=== PATIENT | male | born 1955 | race Two or more races ===

== ENCOUNTER → 2024-01-31 | Outpatient (CLI) | payer OTHER ==
[2024-01-31 09:40] LABS: Urine Blood 1+ /uL (Negative); Urine Clarity Clear (Clear); Urine Color Yellow (Yellow); Urine Protein, UAD Negative (Negative); Urine Specific Gravity 1.017 (1.001-1.035); Urine Urobilinogen Normal (Negative)
[2024-01-31 09:45] LABS: Basophils # (auto) 0 10 ^3/uL (0-0.2); Eosinophils # (auto) 0.1 10 ^3/uL (0-0.8); Monocytes # (auto) 0.4 10 ^3/uL (0-1.3); Monocytes % (auto) 8.2 % (0.0-12.0)
[2024-01-31 09:48] LABS: Basophils % (auto) 0.1 % (0.0-2.0); Eosinophils % (auto) 2.2 % (0.0-7.0); Hematocrit 38.9 % (41.0-53.0); Lymphocytes % (auto) 18.9 % (10.0-50.0); Mean Corpuscular Hemoglobin 33.6 pg (28.0-32.0); Mean Corpuscular Hgb Conc. 33.4 g/dL (32.0-36.0); Mean Corpuscular Volume 100.5 fL (80.0-100.0); Neutrophils # (auto) 3.7 10 ^3/uL (1.6-8.6); Neutrophils % (auto) 70.6 % (37.0-80.0); Nucleated Red Blood Cells % 0.1 %; Red Blood Cells 3.87 10^6/uL (4.5-5.90); Red Cell Distribution Width 15.5 % (11.8-14.3); White Blood Cell 5.2 10^3/uL (4.4-10.8)
[2024-01-31 10:07] LABS: Alanine Aminotransferase 24 U/L (7-40); Alkaline Phosphatase 101 U/L (46-116); Anion Gap 4 (5-15); BUN/Creatinine Ratio 25.4 (10.0-20.0); Blood Urea Nitrogen 15 mg/dL (9-23); Calcium 8.1 mg/dL (8.5-10.1); Carbon Dioxide 26 mmol/L (20-30); Chloride 114 mmol/L (98-107); Glucose 114 mg/dL (74-106); LDL Cholesterol 98 mg/dL (< 100); Potassium 3.8 mmol/L (3.5-5.1); Sodium 144 mmol/L (136-145); Triglycerides 109 mg/dL (< 150)
[2024-01-31 10:08] LABS: Aspartate Aminotransferase 30 U/L (13-40); Bilirubin, Total 1.8 mg/dL (0.2-1.0); Cholesterol 172 mg/dL (< 200); HDL Cholesterol 40 mg/dL (40-59); Total Protein 5.4 g/dL (5.7-8.2)
[2024-01-31 10:21] LABS: Uric Acid 3.2 mg/dL (3.7-9.2)
== END | disposition home or self-care (01) ==
LOC: LAB 09:13
PROVIDERS: ATTEND Family Medicine
DX: E11.65 Type 2 diabetes mellitus with hyperglycemia (principal); D69.59 Other secondary thrombocytopenia; E78.5 Hyperlipidemia, unspecified; R76.8 Other specified abnormal immunological findings in serum; E78.2 Mixed hyperlipidemia; D69.6 Thrombocytopenia, unspecified; M05.79 Rheumatoid arthritis with rheumatoid factor of multiple sites without organ or systems involvement; D63.8 Anemia in other chronic diseases classified elsewhere
CPT/HCPCS: 36415; 80053; 80061; 81003; 82043; 83036; 84153; 84550; 85025

== ENCOUNTER → 2024-03-27 | Outpatient (CLI) | payer OTHER | END | disposition home or self-care (01) | LOC: LAB 10:46 | PROVIDERS: ATTEND Family Medicine | DX: Z12.11 Encounter for screening for malignant neoplasm of colon (principal) | CPT/HCPCS: 82270 ==